=== PATIENT | male | born 1950 | race Caucasian/White ===

== ENCOUNTER → 2017-09-16 | Outpatient (CLI) | payer BC, OTHER ==
[2017-09-16 18:35] LABS: APPEARANCE, URINE CLEAR (CLEAR); BACTERIA, URINE AUTO NEGATIVE (NEGATIVE); BILIRUBIN, URINE AUTO NEGATIVE (NEGATIVE); BLOOD, URINE BLOOD NEGATIVE (NEGATIVE); COLOR, URINE YELLOW (YELLOW); GLUCOSE, URINE (UA) AUTO NEGATIVE (NEGATIVE); KETONE, URINE AUTO TRACE mg/dL (NEGATIVE); LEUKOCYTE ESTERASE, URINE AUTO NEGATIVE (NEGATIVE); NITRITE, URINE AUTO NEGATIVE (NEGATIVE); PROTEIN, URINE AUTO NEGATIVE (NEGATIVE); RBC, URINE AUTO 0 /HPF (0-3); SPECIFIC GRAVITY URINE AUTO 1.009 (1.002-1.035); SQUAMOUS EPITHELIAL CELL UR AU 0 /HPF (0-6); UROBILINOGEN, URINE AUTO 0.2 mg/dL (0.0-2.0); WBC, URINE AUTO 0 /HPF (0-3)
[2017-09-16 18:43] LABS: PROSTATIC SPECIFIC AG MONITOR 4.02 NG/ML (< 4.0)
== END ==
LOC: M SMT 12:58
DX: N41.1 Chronic prostatitis (principal)
CPT/HCPCS: 84153

== ENCOUNTER → 2018-06-09 | Outpatient (CLI) | payer BC, OTHER ==
[2018-06-11 00:06] LABS: PSA TOTAL 3.3 ng/mL (0.0-4.0)
== END ==
LOC: M SMT 11:51
DX: R97.20 Elevated prostate specific antigen [PSA] (principal)
CPT/HCPCS: 84154

== ENCOUNTER → 2019-08-07 | Outpatient (CLI) | payer BC, OTHER ==
[~2019-08-07] MED LIST: ASPI1TAB PO; BACT800T5 PO; COLA50CA3 PO; FLOM0.4C39 PO; KEPP500T4 PO; MULTTAB4 PO
== END ==
LOC: M PLALAB 12:54
PROVIDERS: ATTEND Nurse Practitioner Women's Health
DX: Z12.5 Encounter for screening for malignant neoplasm of prostate (principal)
CPT/HCPCS: 36415; G0103

== ENCOUNTER → 2019-09-13 | Outpatient (CLI) | payer OTHER, BC ==
[2019-09-13 16:50] LABS: BLOOD UREA NITROGEN 15 MG/DL (7-18); CALCIUM LEVEL 9.1 MG/DL (8.8-10.2); CARBON DIOXIDE LEVEL 27 MEQ/L (21-32); CHLORIDE LEVEL 103 MEQ/L (98-107); CREATININE FOR GFR 0.88 MG/DL (0.70-1.30); GLOMERULAR FILTRATION RATE > 60.0 (>42); GLUCOSE, FASTING 110 MG/DL (70-100); SODIUM LEVEL 139 MEQ/L (136-145)
== END ==
LOC: M WUC 12:43
PROVIDERS: ATTEND Nurse Practitioner Women's Health
DX: R97.20 Elevated prostate specific antigen [PSA] (principal)

== ENCOUNTER → 2019-09-15 | Outpatient (CLI) | payer BC, OTHER ==
[~2019-09-15] MED LIST changes: +PROHANCE 279.3MG/ML 15ML VIAL (A9576) As Ordered ONE; +PROHANCE 279.3MG/ML 5ML VIAL (A9576) As Ordered ONE
--- NOTE | 2019-09-15 19:58 | REP ---
Multi parametric prostate MRI without and with IV gadolinium: History: Elevated PSA. Comparisons: No comparison MRI study. The patient is status post transrectal ultrasound guided prostate biopsy February 22, 2015. TECHNIQUE: Using a phased array surface coil, small field of view imaging was acquired using T2-weighted scans in the axial, coronal, and sagittal imaging planes. Small field of view diffusion-weighted sequences are acquired. Small field of view axial T1-weighted scans are acquired dynamically before and after the intravenous administration of 18 mL of ProHance. Imaging is reviewed on the [employer] computer aided detection system. Prostate MRI findings: The prostate is markedly enlarged with dimensions of 9.0 x 7.8 x 7.3 cm. Calculated glandular volume is 232 mL. There is heterogeneous multinodular and marked enlargement of the central gland. The prostate protrudes well into the bladder base. The peripheral zone is effaced and virtually invisible. Pre and postcontrast images demonstrate an area of low T1 signal intensity in the posterior aspect of the left iliac bone at the level of the mid to upper sacrum. There is contrast enhancement in this region post gadolinium. The area in question measures 1.7 cm in greatest diameter. I cannot exclude a hematogenous metastatic focus. Cortical and medullary bone signal intensity are otherwise normal. There are multiple normal-sized bilateral inguinal and iliac lymph nodes which demonstrate contrast enhancement and restricted diffusion. Although they are not enlarged by size criteria, the contrast enhancement and restricted diffusion features must be considered at least somewhat suspicious for metastatic lymph nodes. The largest lymph node in the left pelvic sidewall has a short axis dimension of 1.1 cm. There are several lymph nodes showing restricted diffusion bilaterally along the pelvic side wall and to a lesser extent in the inguinal soft tissues. Three areas of interest are identified within the prostate gland. Regions of interest are drawn around these three areas and they are submitted electronically for consideration of MR/ultrasound fusion directed needle biopsy. Lesion #1 is in the right base posterior transition zone with a calculated volume of 1.5 mL, dimensions 2.1 x 1.0 x 1.0 cm. This is a discrete homogeneous low signal intensity focus confined to the prostate with no reduction in ADC and a type 2 enhancement curve. Clinically significant cancer is equivocal. Lesion #2 is in the left mid anterior transition zone, 2.38 mL calculated volume with diameters of 2.2 x 1.3 x 1.4 cm. This is a discrete low T2 signal intensity focus with no reduction in ADC and a type 2 enhancement curve. Clinically significant cancer is equivocal. Lesion #3 is in the right base anterior transition zone with a calculated volume of 1.67 mL, dimensions of 1.8 x 1.7 x 1.0 cm. This is intermediate and heterogeneous in signal intensity with evidence of restricted diffusion on diffusion-weighted scans and a type 3 contrast enhancement curve. Clinically significant cancer is equivocal. Impression: Three targets are selected within the prostate. Marked prostate enlargement and hypertrophy. There is a focus of low T1 signal intensity and contrast enhancement in the left iliac bone posteriorly and there is restricted diffusion and contrast enhancement in multiple bilateral pelvic lymph nodes. These findings raise suspicion of extra prostatic disease. Electronically Signed by Matthias Hutchins MD 09/15/2019 08:56 P
== END ==
LOC: M RAD 12:55
PROVIDERS: ATTEND Nurse Practitioner Women's Health
DX: N40.0 Benign prostatic hyperplasia without lower urinary tract symptoms (principal); R97.20 Elevated prostate specific antigen [PSA]
CPT/HCPCS: 72197; A9576

== ENCOUNTER → 2019-09-19 | Outpatient (CLI) | payer BC, OTHER ==
[~2019-09-19] MED LIST changes: -PROHANCE 279.3MG/ML 15ML VIAL (A9576) As Ordered ONE; -PROHANCE 279.3MG/ML 5ML VIAL (A9576) As Ordered ONE
--- NOTE | 2019-09-19 12:28 | REPPI ---
Prostate sonography: History: Elevated PSA Sonographic findings: Transrectal sonographic guidance is provided to Dr. Hou who performed trans rectal ultrasound guided needle biopsy procedure . Electronically Signed by Matthias Hutchins MD 09/19/2019 12:19 P
== END ==
LOC: M SMT PRO 08:59
PROVIDERS: ATTEND Urology
DX: R97.20 Elevated prostate specific antigen [PSA] (principal)
CPT/HCPCS: 76942; G0416

== ENCOUNTER → 2020-11-06 | Outpatient (CLI) | payer BC, OTHER ==
[2020-11-08 20:11] LABS: PSA TOTAL 3.2 ng/mL (0.0-4.0)
== END ==
LOC: M WUC 13:06
PROVIDERS: ATTEND Urology
DX: R97.20 Elevated prostate specific antigen [PSA] (principal)

== ENCOUNTER 2021-05-15 16:40 | Emergency (ER) | payer BC, OTHER ==
[~2021-05-15] VITALS: Ht 188 cm; Wt 100.0 kg
[2021-05-15] MEDS ORDERED: ACETAMINOPHEN 500 MG TAB PO ONE (17:00)
--- NOTE | 2021-05-15 17:43 | REP ---
INDICATION: cough. COMPARISON: 08/06/2013. TECHNIQUE: Single portable AP view of the chest was performed. FINDINGS: There is infiltrate in the right lung base. The heart is upper limits of normal in size. There is calcification and ectasia of the thoracic aorta. The mediastinal silhouette otherwise unremarkable. IMPRESSION: Infiltrate right lung base. <Electronically signed by Michele Stewart > 05/15/21 [id number]
[2021-05-15 17:56] VITALS: BP 170/90
[2021-05-15 18:03] LABS: AMORPHOUS SEDIMENT SMALL (NEGATIVE); APPEARANCE, URINE HAZY (CLEAR); BACTERIA, URINE AUTO NEGATIVE (NEGATIVE); BILIRUBIN, URINE AUTO NEGATIVE (NEGATIVE); BLOOD, URINE BLOOD 1+ (NEGATIVE); COLOR, URINE AMBER (YELLOW); GLUCOSE, URINE (UA) AUTO NEGATIVE (NEGATIVE); KETONE, URINE AUTO 1+ mg/dL (NEGATIVE); LEUKOCYTE ESTERASE, URINE AUTO NEGATIVE (NEGATIVE); MUCUS, URINE SMALL (NEGATIVE); NITRITE, URINE AUTO NEGATIVE (NEGATIVE); PROTEIN, URINE AUTO 2+ mg/dL (NEGATIVE); RBC, URINE AUTO 2 /HPF (0-3); SPECIFIC GRAVITY URINE AUTO 1.021 (1.002-1.035); SQUAMOUS EPITHELIAL CELL UR AU 0 /HPF (0-6); UROBILINOGEN, URINE AUTO 0.2 mg/dL (0.0-2.0); WBC, URINE AUTO 0 /HPF (0-3)
[2021-05-15] MEDS ORDERED: LEVO750T14 PO (18:04)
[2021-05-15] MEDS ORDERED: LevoFLOXacin 750 MG TABLET PO ONE (18:05)
== END 2021-05-15 18:30 | disposition home or self-care (01) ==
LOC: EDBD 16:40 → M ED 16:40
DX: J18.1 Lobar pneumonia, unspecified organism (principal)
CPT/HCPCS: 71045; 81001; 99284; U0003

== ENCOUNTER → 2022-01-13 | Outpatient (CLI) | payer BC, OTHER ==
[~2022-01-13] MED LIST changes: +LEVO750T14 PO
== END ==
LOC: M WUC 09:12
PROVIDERS: ATTEND Nurse Practitioner Women's Health
DX: R97.20 Elevated prostate specific antigen [PSA] (principal)

== ENCOUNTER → 2023-05-11 | Outpatient (REF) | payer BC, OTHER ==
[2023-05-14 00:07] LABS: PSA TOTAL 3.6 ng/mL (0.0-4.0)
== END ==
LOC: M WUC 16:18
PROVIDERS: ATTEND Urology
DX: R97.20 Elevated prostate specific antigen [PSA] (principal)

== ENCOUNTER 2023-07-11 22:27 | Emergency (ER) | payer MEDICARE, BC, OTHER ==
[2023-07-11] MEDS ORDERED: NS 1,000 ML IV ONE ×2 (22:35)
[2023-07-11 22:58] LABS: VENOUS BASE EXCESS -10.8 (-2.0-2.0); VENOUS HCO3 15.8 MMOL/L (23.0-27.0); VENOUS O2 SATURATION 36.9 % (60.0-80.0); VENOUS PARTIAL PRESSURE CO2 37.8 mmHg (38.0-50.0); VENOUS PARTIAL PRESSURE O2 24.8 mmHg (30.0-50.0); VENOUS STANDARD HCO3 14.9 MMOL/L
[2023-07-11 23:07] LABS: BASO % 0.4 % (0.0-1.0); EOS # 0.1 10^3/uL (0.0-0.5); EOS % 0.8 % (0.0-3.0); HEMATOCRIT 36.1 % (42.0-52.0); HEMOGLOBIN 12.2 g/dl (13.5-17.5); LYMPH # 2.1 10^3/uL (1.5-5.0); LYMPH % 24.8 % (24.0-44.0); MEAN CORPUSCULAR HEMOGLOBIN 34.9 pg (27.0-33.0); MEAN CORPUSCULAR HGB CONC 33.8 g/dl (32.0-36.5); MEAN CORPUSCULAR VOLUME 103.1 fl (80.0-96.0); MONO # 0.5 10^3/uL (0.0-0.8); MONO % 6.2 % (2.0-8.0); NEUTROPHILS # 5.6 10^3/uL (1.5-8.5); NEUTROPHILS % 66.5 % (36.0-66.0); PLATELET COUNT, AUTOMATED 149 10^3/uL (150-450); WHITE BLOOD COUNT 8.4 10^3/uL (4.0-10.0)
[2023-07-11] MEDS ORDERED: ISOVUE-370 76% 100ML VIAL As Ordered ONE (23:07)
[2023-07-11 23:25] LABS: INR 1.25; PARTIAL THROMBOPLASTIN TIME 27.4 SECONDS (24.8-34.2); PROTHROMBIN TIME 15.3 SECONDS (12.5-14.5)
[2023-07-11 23:28] LABS: C REACTIVE PROTEIN QUANTITATIV 5.3 MG/DL (<1.0)
[2023-07-11 23:30] LABS: ALBUMIN 3.5 G/DL (3.2-5.2); BILIRUBIN,DIRECT 0.3 MG/DL (<0.4); BILIRUBIN,TOTAL 0.9 MG/DL (0.3-1.2); CALCIUM LEVEL 8.7 MG/DL (8.3-10.6); CREATININE FOR GFR 1.49 MG/DL (0.70-1.30); GLOMERULAR FILTRATION RATE 49.1 (>42); POTASSIUM SERUM 3.9 MMOL/L (3.5-5.1)
[2023-07-11 23:42] LABS: PROCALCITONIN 0.06 ng/ml
[2023-07-12] MEDS ORDERED: MIDAZOLAM 100MG/100ML-0.9%NACL 100 MG in IV 1 EA IV SCH (00:05)
[2023-07-12] MEDS ORDERED: SODIUM BICARBONATE 8.4% INJ 50ML SYRINGE IV STA (00:07)
[2023-07-12 00:21] LABS: ABG BASE EXCESS -22.7 (-2.0-2.0); ABG HCO3 8.7 MMOL/L (22.0-26.0); ABG O2 SATURATION 99.5 % (95.0-99.0); ABG PARTIAL PRESSURE CO2 39.8 mmHg (35.0-45.0); ABG PARTIAL PRESSURE O2 331.7 mmHg (75.0-100.0); ABG STANDARD HCO3 8.4 MMOL/L. (22.0-26.0); ABG TOTAL CO2 9.9 MMOL/L (23.0-31.0)
[2023-07-12 00:24] LABS: ABG pH (ARTERIAL) 6.956 UNITS (7.350-7.450)
[2023-07-12 00:51] LABS: CK-MB VALUE MASS 3.6 NG/ML (<3.6)
[2023-07-12 00:52] LABS: MB/CK RELATIVE INDEX 1.93 (< OR =4)
[2023-07-12 01:41] LABS: BASO % 0.4 % (0.0-1.0); EOS % 0.2 % (0.0-3.0); HEMOGLOBIN 12.6 g/dl (13.5-17.5); LYMPH # 1.4 10^3/uL (1.5-5.0); LYMPH % 15.3 % (24.0-44.0); MEAN CORPUSCULAR HEMOGLOBIN 34.7 pg (27.0-33.0); MEAN CORPUSCULAR HGB CONC 33.2 g/dl (32.0-36.5); MEAN CORPUSCULAR VOLUME 104.7 fl (80.0-96.0); MONO # 0.4 10^3/uL (0.0-0.8); MONO % 4.2 % (2.0-8.0); NEUTROPHILS # 6.7 10^3/uL (1.5-8.5); NEUTROPHILS % 75.7 % (36.0-66.0); PLATELET COUNT, AUTOMATED 149 10^3/uL (150-450); RED BLOOD COUNT 3.63 10^6/uL (4.30-6.10); WHITE BLOOD COUNT 8.9 10^3/uL (4.0-10.0)
[2023-07-12 01:52] LABS: APPEARANCE, URINE HAZY (CLEAR); BACTERIA, URINE AUTO NEGATIVE (NEGATIVE); BILIRUBIN, URINE AUTO NEGATIVE (NEGATIVE); BLOOD, URINE BLOOD 3+ (NEGATIVE); COLOR, URINE YELLOW (YELLOW); GLUCOSE, URINE (UA) AUTO 2+ mg/dL (NEGATIVE); KETONE, URINE AUTO NEGATIVE (NEGATIVE); LEUKOCYTE ESTERASE, URINE AUTO NEGATIVE (NEGATIVE); MUCUS, URINE SMALL (NEGATIVE); NITRITE, URINE AUTO NEGATIVE (NEGATIVE); PROTEIN, URINE AUTO 2+ mg/dL (NEGATIVE); RBC, URINE AUTO TNTC /HPF (0-3); SQUAMOUS EPITHELIAL CELL UR AU 0 /HPF (0-6); UROBILINOGEN, URINE AUTO 0.2 mg/dL (0.0-2.0); WBC, URINE AUTO 4 /HPF (0-3)
[2023-07-12 02:08] LABS: ALBUMIN 3.2 G/DL (3.2-5.2); BILIRUBIN,TOTAL 1.3 MG/DL (0.3-1.2); CALCIUM LEVEL 7.7 MG/DL (8.3-10.6); CK-MB VALUE MASS 3.8 NG/ML (<3.6); CREATININE FOR GFR 1.49 MG/DL (0.70-1.30); GLOMERULAR FILTRATION RATE 49.1 (>42); MB/CK RELATIVE INDEX 2.05 (< OR =4); POTASSIUM SERUM 3.8 MMOL/L (3.5-5.1); TOTAL PROTEIN 5.7 G/DL (5.7-8.2)
[2023-07-12] MEDS: ESMOLOL HCL 2,000 MG in IV 1 EA IV SCH ×2 (02:17→02:50)
[2023-07-12] MEDS ORDERED: NOREPINEPHRINE 4MG IN D5 250ML 4 MG in IV 1 EA IV SCH ×2 (02:20)
[2023-07-12 02:36] VITALS: O2SAT 98
[2023-07-12 02:36] LABS: ABG BASE EXCESS -9.2 (-2.0-2.0); ABG O2 SATURATION 96.9 % (95.0-99.0); ABG PARTIAL PRESSURE O2 103.4 mmHg (75.0-100.0); ABG STANDARD HCO3 17.2 MMOL/L. (22.0-26.0); ABG TOTAL CO2 20.5 MMOL/L (23.0-31.0)
[2023-07-12 02:37] LABS: ABG pH (ARTERIAL) 7.197 UNITS (7.350-7.450)
[2023-07-12 03:15] VITALS: BP 113/56
[2023-07-12] MEDS ORDERED: ROCURONIUM BROMIDE 50MG/5ML VIAL IV ONE (04:10)
[2023-07-12] MEDS ORDERED: ETOMIDATE INJ 20MG/10ML VIAL IV ONE (04:10)
== END 2023-07-12 04:33 | disposition short-term general hospital (02) ==
LOC: M ED 22:27 → EDBD 22:27 → M ED 07-12 04:33
DX: K92.2 Gastrointestinal hemorrhage, unspecified (principal); J96.90 Respiratory failure, unspecified, unspecified whether with hypoxia or hypercapnia; E87.21 Acute metabolic acidosis; N40.1 Benign prostatic hyperplasia with lower urinary tract symptoms; I71.019 Dissection of thoracic aorta, unspecified; Z79.899 Other long term (current) drug therapy
CPT/HCPCS: 36600; 71045; 71275; 72131; 74174; 74176; 80047; 80048; 80053; 80076; 81001; 82150; 82550; 82553; 82803; 83605; 83690; 84145; 84484; 85025; 85610; 85730; 86140; 86850; 86900; 86901; 86920; 87040; 87486; 87507; 87581; 87633; 87798; 93005; 93041; 93306; 94760; 96361; 96365; 96375; 99285; J1805; J2250; Q9967